=== PATIENT | male | born 1965 | race Caucasian/White ===

== ENCOUNTER → 2017-05-09 10:54 | Outpatient (CLI) | payer MEDICAID, SELFPAY ==
--- NOTE | 2017-05-09 10:57 | MR_ITS ---
MR shoulder LT wo con HISTORY: Left anterior shoulder pain with limited range of motion with tingling and numbness ITS.REASON: LEFT ANTERIOR SHOULDER PAIN, PAIN IN LEFT SHOULDER, OTHER CH ORDERING PHYSICIAN: Chela Leblanc PATIENT AGE: 51 years COMPARISON: Radiograph of 02/08/2016 TECHNIQUE: Standard multiplanar multiecho sequences are performed without contrast. FINDINGS: There are mild hypertrophic changes of the acromioclavicular joint. In addition, there is hypertrophic change along the undersurface of the acromion resulting in impingement's upon the supraspinatus tendon consistent with subacromial stenosis. There is mild thickening of the supraspinatus tendon with increased T2 signal consistent with tendinopathy/tendinosis. Along the posterior aspect of the supraspinatus tendon there is discontinuity of the tendon consistent with a full-thickness tear of the posterior aspect of the supraspinatus tendon. A complete tear of the supraspinatus tendon however is not present. The infraspinatus, subscapularis, and teres minor tendons are intact. No labral tear apparent. There is a small amount fluid in the subacromial region and subdeltoid region. The bicipital tendon is in place. No fracture apparent. IMPRESSION: 1. 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 2. Full-thickness tear involves the posterior aspect of the supraspinatus tendon. A complete tear with muscle and tendinous retraction however is not apparent with the anterior aspect of the tendon intact. 3. Tendinopathy/tendinosis of the supraspinatus tendon.
== END ==
PROVIDERS: Family Provider Nurse Practitioner; PCP Nurse Practitioner; Visit Provider Nurse Practitioner
DX: M25.512 Pain in left shoulder (principal); G89.29 Other chronic pain
CPT/HCPCS: 73221

== ENCOUNTER 2017-05-12 13:00 | Outpatient (RCR) | payer MEDICAID, SELFPAY ==
--- NOTE | 2017-05-04 11:26 | HMH.PTOPEV ---
Rehab Outpatient Evaluation Rehab OP Evaluation Start: 05/04/17 11:13 Freq: Status: Active Protocol: Document 05/04/17 11:13 TFRY (Rec: 05/04/17 11:24 TFRY [id number]) Electronically Signed By Sisi Parra OT 05/04/17 11:13 Outpatient Therapy Subjective History Subjective History THIS IS A 51 YEAR OLD LEFT HANDED MALE REFERRED TO OCCUPATIONAL THERAPY FOR LEFT SHOULDER PAIN. PATIENT STATES THAT HIS SHOULDER STARTED HURTING APPROXIMATELY 2 MONTHS AGO AND CAN NOT RECALL DOING ANYTHING TO IT. Chief Complaint Pain Symptom Type Sharp Shooting Symptoms Relieved By Activity Prior Functional Limitations None Current Functional Limitations Reaching Lifting Sleeping Symptom Description Constant but Variable Level of pain today (0-10) 5 Pain scale - at its best (0-10) 3 Pain scale - at its worst (0-10) 8 Shoulder/Elbow Eval Shoulder Objective Measurements Palpation Tenderness tenderness shoulder exam standard left Shoulder Palpation Findings Tenderness Shoulder ROM Left Shoulder ROM Limitations Pain Shoulder Abduction Active Range of WFL Motion (degrees) Shoulder Flexion Active Range of Motion WFL (degrees) Query Text: Shoulder External Rotation Active Range WFL of Motion (degrees) Shoulder Internal Rotation Active Range WFL of Motion (degrees) Shoulder Extension Active Range of WFL Motion (degrees) pain with active ROM shoulder exam left standard full ROM shoulder exam standard left Shoulder MMT Shoulder Abduction Strength Grade 4- Good- Shoulder Extension Strength Grade 4- Good- Shoulder Flexion Strength Grade 4- Good- Shoulder External Rotation Strength 3+ Fair+ Grade Shoulder Internal Rotation Strength 3+ Fair+ Grade Shoulder Strength Patient Testing Sitting Position Elbow Objective Measurements Outpatient Therapy Assessment Impairments Problems/Impairmments Palpation Tenderness Impaired Strength Impaired Lifting Impaired Desk/Computer Activities Subjective C/O Pain Prognosis Rehab Potential Good Clinical Impression Consistent with Diagnosis Yes Short Te
== END 2017-05-12 13:01 | disposition home or self-care (01) ==
LOC: OT 13:00
PROVIDERS: Family Provider Nurse Practitioner; PCP Nurse Practitioner; Visit Provider Nurse Practitioner
DX: M25.512 Pain in left shoulder (principal)
CPT/HCPCS: 97014; 97033; 97110; 97163; 97165; G0283

== ENCOUNTER → 2018-05-18 13:00 | Outpatient (CLI) | payer MEDICAID, SELFPAY | PROVIDERS: PCP Family Medicine; Visit Provider Nurse Practitioner | DX: G47.30 Sleep apnea, unspecified (principal); R40.0 Somnolence; E66.9 Obesity, unspecified | CPT/HCPCS: 95806 ==

== ENCOUNTER → 2020-04-07 11:45 | Outpatient (CLI) | payer OTHER, SELFPAY ==
--- NOTE | 2020-04-07 11:59 | XR_ITS ---
PROCEDURE: XR ELBOW LT MIN 3V CLINICAL INDICATION: INJURY OF LT ELBOW, EFFUSION, PAIN IN LT ELBOW Pain COMPARISON: No exams were available for comparison FINDINGS: No fracture or dislocation. No lytic or blastic change. There is normal mineralization. The anterior fat pad is displaced anteriorly. Other findings:Minimal calcification noted along the lateral epicondylar region and could be due to an old injury or ligamentous calcification. IMPRESSION: Displaced anterior fat pad which could be seen with occult fracture. Follow-up recommended. No definite fracture lines apparent. Dictated by: Gera Laird MD 04/07/2020 18:54 Gera Laird MD in [place] 04/07/2020 18:54
== END ==
PROVIDERS: PCP Family Medicine; Visit Provider Nurse Practitioner Family
DX: S59.902A Unspecified injury of left elbow, initial encounter (principal); M25.522 Pain in left elbow; M25.422 Effusion, left elbow
CPT/HCPCS: 73080

== ENCOUNTER → 2020-04-17 12:23 | Outpatient (CLI) | payer OTHER, SELFPAY ==
--- NOTE | 2020-04-17 12:28 | XR_ITS ---
PROCEDURE: XR ELBOW LT MIN 3V CLINICAL INDICATION: LT elbow injury COMPARISON: CR XR ELBOW LT MIN 3V from 04/07/2020 FINDINGS: No fracture or dislocation. No lytic or blastic change. There is normal mineralization. The joint spaces are well-preserved. No significant degenerative/arthritic changes. No erosive changes evident. Other findings:There is faint calcification along the lateral epicondylar region. This could be due to prior ligamentous injury. The previously noted displaced anterior fat pad is no longer apparent. IMPRESSION: No acute findings. Dictated by: Gera Laird MD 04/17/2020 13:43 Gera Laird MD in [place] 04/17/2020 13:43
== END ==
PROVIDERS: PCP Family Medicine; Visit Provider Orthopaedic Surgery
DX: M25.522 Pain in left elbow (principal)
CPT/HCPCS: 73080

== ENCOUNTER 2022-02-03 10:19 | Emergency (ER) | payer OTHER, SELFPAY ==
--- NOTE | 2022-02-03 11:06 | EXP.UTC ---
Discharge Plan Disposition Patient Disposition: Home, Self-Care Condition: Good Prescriptions Prescriptions: New benzonatate [benzonatate] 100 mg capsule 100 mg PO TIDP PRN (Reason: Cough) Qty: 30 0RF oseltamivir [Tamiflu] 75 mg capsule 75 mg PO BID 5 Days Qty: 10 0RF ondansetron 4 mg Tablet,Disintegrating 4 mg PO Q8H PRN (Reason: Nausea) Qty: 20 0RF No Action fluticasone propionate [Allergy Relief (fluticasone)] 50 mcg/actuation spray,suspension 1 spray INTRANASAL DAILY Rx Instructions: administer into each nostril naproxen 250 mg tablet 250 mg PO BID PRN multivitamin [Daily Multi-Vitamin] Tablet 1 tab PO DAILY Breo Ellipta 100-25 mcg/dose blister with device 1 inh INHALATION DAILY cholecalciferol (vitamin D3) 75 mcg (3,000 unit) tablet 75 mcg PO DAILY hydrochlorothiazide 25 mg tablet 25 mg PO DAILY Referrals Follow up/Referrals: Dheeraj Saunders MD [Primary Care Provider] - See instructions Activity Restrictions/Add. Instructions Additional Instructions/Restrictions: Drink plenty of fluids. Take tylenol or ibuprofen for pain or fever. Take the medications as directed. Follow up with your regular doctor. GO TO THE ER FOR ANY WORSENING SYMPTOMS Clinical Impressions Clinical Impression: Influenza A Instructions Patient Instructions: DI for Influenza -- Adult, Oseltamivir Discharge ED Provider: Kelvin Barker [facility] General Stated complaint: cough, Body aches, weakness, chills Time Seen by Provider: 02/03/22 11:06 History of Present Illness Provider Complaint: He states that for the past 1 day he has had fever, chills, cough, n/v/d, and body aches. Related Data Home Medications Medication Instructions Recorded Confirmed cholecalciferol (vitamin D3) 75 75 mcg PO DAILY 04/17/20 04/17/20 mcg (3,000 unit) tablet fluticasone furoate 100 1 inh inhalation DAILY 04/17/20 04/17/20 mcg-vilanterol 25 mcg/dose inhalation powder (Breo Ellipta) fluticasone propionate 50 1 spray intranasal DAILY 04/17/20 04/17/20 mcg/actuation nasal spray,suspension (Allergy Relief (fluticasone)) hydrochlorothiazide 25 mg tablet 25 mg PO DAILY 04/17/20 04/17/20 multivitamin (Daily Multi-Vitamin 1 tab PO DAILY 04/17/20 04/17/20 tablet) naproxen 250 mg tablet 250 mg PO BID PRN 04/17/20 04/17/20 Previous Rx's Medication Instructions Recorded benzonatate 100 mg capsule 100 mg PO TIDP PRN Cough #30 caps 02/03/22 ondansetron 4 mg disintegrating 4 mg PO Q8H PRN Nausea #20 tabs 02/03/22 tablet oseltamivir 75 mg capsule (Tamiflu) 75 mg PO BID 5 days #10 caps 02/03/22 Allergies Allergy/AdvReac Type Severity Reaction Status Date / Time No Known Allergies Allergy Verified 02/03/22 11:16 [facility] Social History Smoking Status: Never smoker alcohol intake: never current occupational status: employed Travel in the last 8 weeks: None household members: family housing: house ROS Obtained: Yes All systems reviewed & no additional complaints except as documented Constitutional Constitutional: Reports as per HPI, Reports chills and Reports fever(s) Eyes Eyes: Denies eye discharge ENT Ears, Nose, Mouth, and Throat: Reports as per HPI Cardiovascular Cardiovascular: Denies chest pain Respiratory Respiratory: Denies chest congestion and Reports cough Gastrointestinal Gastrointestingal: Reports nausea; Denies abdominal pain, constipation, cramping, diarrhea or vomiting Musculoskeletal Musculoskeletal: Denies arthralgias Integumentary/Breasts Skin/Breast: Denies rash Neurologic Neurologic: Denies paresthesias Physical Exam General General appearance: alert and in no apparent distress Head Head exam: atraumatic, normocephalic and normal inspection Eye Eye exam: Present normal appearance, PERRL and EOMI ENT ENT exam: Present normal exam, normal oropharynx, mucou
[2022-02-03 11:11] LABS: UTC Influenza A Antigen Positive (Negative); UTC Influenza B Antigen Negative (Negative)
[2022-02-03 11:13] VITALS: BP 172/97; PULSE 80; RESP 16; TEMP 37.4; O2SAT 97; BMI 28.2
[2022-02-03 11:36] VITALS: BP 172/97; PULSE 80; RESP 16; TEMP 37.4
== END 2022-02-03 11:37 | disposition home or self-care (01) ==
PROVIDERS: Emergency Provider Nurse Practitioner Family; PCP Family Medicine
DX: R50.9 Fever, unspecified; R53.1 Weakness; R11.2 Nausea with vomiting, unspecified; R19.7 Diarrhea, unspecified; M79.10 Myalgia, unspecified site; Z79.1 Long term (current) use of non-steroidal anti-inflammatories (NSAID); Z79.51 Long term (current) use of inhaled steroids; Z79.899 Other long term (current) drug therapy
CPT/HCPCS: 87804; 99213; G0463

== ENCOUNTER 2023-10-09 14:33 | Outpatient (CLI) | payer OTHER, SELFPAY ==
--- NOTE | 2023-10-09 14:41 | XR_ITS ---
FINAL REPORT CLINICAL HISTORY: ABDOMINAL PAIN ACUTE RIGHT COMPARISON: None FINDINGS: A single supine view the abdomen was obtained. The bowel gas pattern is nonspecific but nonobstructive. There are no pathologic calcifications. Osseous structures are within normal limits. IMPRESSION: Nonspecific but nonobstructive bowel gas pattern. Reviewed, Interpreted and Dictated by Mecca Devries MD Transcribed by Pooja Walters Authenticated and [facility]
== END 2023-10-09 23:59 | disposition home or self-care (01) ==
LOC: RAD 14:37
PROVIDERS: PCP Nurse Practitioner; Visit Provider Nurse Practitioner
DX: R10.31 Right lower quadrant pain (principal); M54.9 Dorsalgia, unspecified
CPT/HCPCS: 74018

== ENCOUNTER 2023-10-18 09:54 | Outpatient (CLI) | payer OTHER, SELFPAY ==
--- NOTE | 2023-10-18 09:58 | US_ITS ---
FINAL REPORT TECHNIQUE: Ultrasound images of the abdomen were obtained. CLINICAL HISTORY: .rt sided pain FINDINGS: The pancreas is obscured by bowel gas. There is fatty infiltration of the liver. The gallbladder is unremarkable. The common duct is normal. The right kidney measures 8.8 cm in length and is normal in echogenicity without hydronephrosis. The left kidney measures 10.5 cm in length and is normal in echogenicity without hydronephrosis. The spleen is unremarkable. The aorta is normal in caliber. The vena cava is unremarkable. IMPRESSION: Fatty liver. Reviewed, Interpreted and Dictated by Marianna Bradley MD Transcribed by Laura Dunn Authenticated and [facility]
== END 2023-10-18 23:59 | disposition home or self-care (01) ==
LOC: RAD 09:54
PROVIDERS: PCP Nurse Practitioner; Visit Provider Nurse Practitioner
DX: R10.31 Right lower quadrant pain (principal); M54.9 Dorsalgia, unspecified
CPT/HCPCS: 76700